=== PATIENT | female | born 1990 | race African-American/Black ===

== ENCOUNTER 2017-11-24 19:10 | Emergency (ER) | payer MEDICAID ==
[2017-11-24 19:59] LABS: Absolute Lymphocytes (CBC) 2.4 K/uL (0.7-4.9); Absolute Monocytes 0.8 K/uL (0.1-1.3); Absolute Neutrophil 7.8 K/uL (1.8-8.0); Basophils % 0.6 % (0-1.3); Eosinophils % 1.1 % (0-4.4); Hematocrit 35.2 % (36.0-45.0); Lymphocytes % 21.8 % (15.3-44.8); MCH 26.8 pg (27.0-35.0); MCV 79.7 fL (80-100); MPV 8.2 fL (7.6-11.3); RBC Red Blood Cell Count 4.41 M/uL (3.86-4.86)
[2017-11-24 20:06] LABS: BUN Blood Urea Nitrogen 5 mg/dL (6-20); Bicarbonate 23 mEq/L (21-31); Glomerular Filtration Rate > 90 mL/min (=/>90); Glucose Level 138 mg/dL (65-120); Potassium 3.3 mEq/L (3.6-5.0); Sodium Level 135 mEq/L (135-145)
[2017-11-24 20:53] LABS: Urine Blood 3+ (NEG); Urine Glucose NEGATIVE (NEG); Urine Protein 3+ (NEG); Urine Specific Gravity >1.030 (1.005-1.030)
--- NOTE | 2017-11-24 21:51 | RAD REPORT ---
EXAM DESCRIPTION: US - OB Limited - 11/24/2017 9:15 pm CLINICAL HISTORY: with vaginal bleeding and abdominal pain COMPARISON: None FINDINGS: A limited examination was performed to assess amniotic fluid, placenta and viability. Single live intrauterine is in cephalic presentation. The amniotic fluid is within normal l imits. The placenta is posterior. Partial placenta previa is seen. Cardiac activity 157 beats per minute. The cervix measures 4.2 centimeters BPD 3.7 centimeter 17 weeks 2 days HC 13.5 centimeters 17 weeks 0 days HC 11.8 centimeters 17 weeks 4 days FL 2.5 centimeter 17 weeks 4 days Estimated weight 197 grams IMPRESSION: Single live intrauterine in cephalic presentation. Estimated gestational age 17 weeks 3 days KARLO 05/23/2018 Partial placenta previa Normal amniotic fluid A follow-up ultrasound is recommended to reassess the placenta. If a survey is desired it shoul d be performed in approximately 7-10 days
--- NOTE | 2017-11-24 22:27 | ER ---
Nurse's Notes [facility] Name: Gabriella Howard Age: 26 yrs Sex: Female : 1990 Arrival Date: 11/24/2017 Time: 19:13 Bed 20 Private MD: Diagnosis: Partial Placenta Previa;Vaginal Bleeding Presentation: 11/24 19:18 Presenting complaint: Patient states: Patient states feeling light headed and then felt lp1 something "come out"; Bright red bleeding, vaginal; Seeing Dr. Rosales for OB; Feeling some pelvic pressure. Transition of care: patient was not received from another setting of care. Onset of symptoms was November 24, 2017 at 18:45. Care prior to arrival: None. 19:18 Method Of Arrival: Ambulatory lp1 19:18 Acuity: MERLIN 3 lp1 Triage Assessment: 19:25 General: Appears in no apparent distress. Behavior is calm, cooperative. rk2 19:25 Pain: Denies pain. Neuro: Level of Consciousness is alert, Oriented to person, place, rk2 time, situation. Respiratory: Airway is patent Respiratory effort is even, unlabored, Respiratory pattern is regular, symmetrical. : Reports vaginal bleeding that is. Derm: Skin is pink, warm \\T\\ dry. 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 - Social history:: Smoking status: Patient/guardian denies using tobacco. Screenin:23 Abuse screen: Denies threats or abuse. Denies injuries from another. Nutritional lp1 screening: No deficits noted. Tuberculosis screening: No symptoms or risk factors identified. Fall Risk None identified. Assessment: 20:00 Reassessment: Pt. resting in room with family \\T\\ bedside... pt. appears to be in no rk2 obvious distress. Pt. voiced no needs \\T\\ this time. 21:10 Reassessment: Pt. resting in room in no obvious distress... family \\T\\ bedside. Pt. rk2 voiced no needs \\T\\ this time. Vital Signs: 19:20 BP 106 / 62 RA Standing; Pulse 117; Resp 18; Temp 97.9(TE); Pulse Ox 98% on R/A; Weight lp1 97.52 kg; Height 5 ft. 1 in. (154.94 cm); Pain 0/10; 22:19 BP 115 / 62; Pulse 84; Resp 16; Pulse Ox 99% on R/A; rk2 19:20 Body Mass Index 40.62 (97.52 kg, 154.94 cm) lp1 ED Course: 19:13 Patient arrived in ED. do 19:20 Triage completed. lp1 19:20 Arm band placed on left wrist. lp1 19:25 Patient has correct armband on for positive identification. Bed in low position. Call rk2 light in reach. 19:31 [facility] jr8 19:31 Kevin Betancourt MD is Attending Physician. jr8 19:31 Carol Begum RN is Primary Nurse. rk2 19:50 Quantitative Hcg Sent. rk2 19:50 Abo/rh Typing Sent. rk2 20:33 Ultrasound completed. Patient tolerated well. 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 sg3 20:43 US OB Limited Sent. rk2 20:45 Basic Metabolic Panel Sent. rk2 20:45 CBC with Diff Sent. rk2 22:31 No provider procedures requiring assistance completed. IV discontinued. rk2 Administered Medications: No medications were administered Outcome: 22:27 Discharge ordered by . jr8 22:31 Discharged to home ambulatory. rk2 22:31 Condition: good 22:31 Discharge instructions given to patient. 22:42 Patient left the ED. rk2 Signatures: Karen Biswas, RN RN lp1 Winston Stone PA PA jr8 Meghana Davies Sarah sg3 Carol Begum RN RN rk2
--- NOTE | 2017-11-24 22:27 | EDPHYS ---
Physician Documentation [facility] Name: Gabriella Howard Age: 26 yrs Sex: Female : 1990 Arrival Date: 11/24/2017 Time: 19:13 Bed 20 Private MD: ED Physician Kevin Betancourt HPI: 11/24 20:24 This 26 yrs old Black Female presents to ER via Ambulatory with complaints of 4 Months jr8 with Vaginal Bleeding. 20:24 The patient presents with vaginal bleeding that is light. Onset: The symptoms/episode jr8 began/occurred acutely, today. Modifying factors: The symptoms are alleviated by nothing, the symptoms are aggravated by nothing. Associated signs and symptoms: Pertinent positives: cramping. Severity of symptoms: At their worst the symptoms were mild, in the emergency department the symptoms are unchanged. The patient has not experienced similar symptoms in the past. The patient has not recently seen a physician. Patient stated that she had hot flash yesterday and passed out. Stated that when she woke up her underwear was wet. Today she has had lower pelvic pressure and vaginal bleeding. 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 - Social history:: Smoking status: Patient/guardian denies using tobacco. ROS: 20:24 Eyes: Negative for injury, pain, redness, and discharge, ENT: Negative for injury, jr8 pain, and discharge, Neck: Negative for injury, pain, and swelling, Cardiovascular: Negative for chest pain, palpitations, and edema, Respiratory: Negative for shortness of breath, cough, wheezing, and pleuritic chest pain, Abdomen/GI: Negative for abdominal pain, nausea, vomiting, diarrhea, and constipation, Back: Negative for injury and pain, MS/Extremity: Negative for injury and deformity, Skin: Negative for injury, rash, and discoloration. 20:24 : Positive for vaginal bleeding. 20:24 Neuro: Positive for syncope, Negative for altered mental status, dizziness, gait disturbance, headache, hearing loss, numbness, seizure activity, speech changes, tingling, tinnitus, tremor, visual changes, weakness. Exam: 20:24 ENT: Nares patent. No nasal discharge, no septal abnormalities noted. Tympanic jr8 membranes are normal and external auditory canals are clear. Oropharynx with no redness, swelling, or masses, exudates, or evidence of obstruction, uvula midline. Mucous membranes moist. Neck: Trachea midline, no thyromegaly or masses palpated, and no cervical lymphadenopathy. Supple, full range of motion without nuchal rigidity, or vertebral point tenderness. No Meningismus. Cardiovascular: Regular rate and rhythm with a normal S1 and S2. No gallops, murmurs, or rubs. Normal PMI, no JVD. No pulse deficits. Respiratory: Lungs have equal breath sounds bilaterally, clear to auscultation and percussion. No rales, rhonchi or wheezes noted. No increased work of breathing, no retractions or nasal flaring. Abdomen/GI: Soft, non-tender, with normal bowel sounds. No distension or tympany. No guarding or rebound. No evidence of tenderness throughout. Back: No spinal tenderness. No costovertebral tenderness. Full range of motion. Skin: Warm, dry with normal turgor. Normal color with no rashes, no lesions, and no evidence of cellulitis. MS/ Extremity: Pulses equal, no cyanosis. Neurovascular intact. Full, normal range of motion. Neuro: Awake and alert, GCS 15, oriented to person, place, time, and situation. Cranial nerves II-XII grossly intact. Motor strength 5/5 in all extremities. Sensory grossly intact. Cerebellar exam normal. Normal gait. 22:07 : Pelvic Exam: External exam: is normal, Speculum exam: mild bleeding, no cervicitis, jr8 os that is closed, bimanual exam reveals no cervical motion tenderness, os that is closed, the nurse was present for the exam. Vital Signs: 19:20 BP 106 / 62 RA Standing; Pulse 117; Resp 18; Temp 97.9(TE); Pulse Ox 98% on R/A; Weight lp1 97.52 kg; Height 5 ft. 1 in. (154.94 cm); Pain 0/10; 22:19 BP 115 / 62; Pulse 84; Resp 16; Pulse Ox 99% on R/A; rk2 19:20 Body Mass Index 40.62 (97.52 kg, 154.94 cm) lp1 MDM: 19:31 Patient medically screened. [facility] 22:07 Data reviewed: vital signs, nurses notes, lab test result(s), radiologic studies, 8 ultrasound. 22:25 Data interpreted: Pulse oximetry: on room air is 99 %. Interpretation: normal. jr8 Counseling: I had a detailed discussion with the patient and/or guardian regarding: the historical points, exam findings, and any diagnostic results supporting the discharge/admit diagnosis, lab results, radiology results, the need for outpatient follow up, an OB/Gyne specialist, to return to the emergency department if symptoms worsen or persist or if there are any questions or concerns that arise at home. ED course: Dr. Simeon consulted on case. Recommended complete pelvic rest and no strenuous activity. Need to f/u with OB on Sunday. If worse to come back for further evaluation. 11/24 19:31 Order name: Quantitative Hcg [facility] 11/24 19:31 Order name: Abo/rh Typing [facility] 11/24 19:31 Order name: Basic Metabolic Panel [facility] 11/24 19:31 Order name: CBC with Diff [facility] 11/24 19:59 Order name: Urine Dipstick--Ancillary (enter results) [facility] 11/24 19:59 Order name: Urine --Ancillary (enter results) [facility] 11/24 20:00 Order name: US OB Limited 11/24 20:02 Order name: CBC with Automated Diff; Complete Time: 20:04 EDMS 11/24 20:06 Order name: Basic Metabolic Panel; Complete Time: 20:41 EDMS 11/24 20:38 Order name: HCG, Quantitative; Complete Time: 20:41 EDMS 11/24 20:41 Order name: ABO/RH typing; Complete Time: 20:41 EDMS 11/24 20:54 Order name: Urine --Ancillary; Complete Time: 20:55 EDMS 11/24 20:54 Order name: Urine Dipstick-Ancillary; Complete Time: 20:55 EDMS 11/24 21:51 Order name: US; Complete Time: 21:52 [facility] 11/24 19:31 Order name: Urine Test (obtain specimen); Complete Time: 19:57 jr8 11/24 19:31 Order name: IV Saline Lock; Complete Time: 19:48 jr8 11/24 19:31 Order name: Labs collected and sent; Complete Time: 19:48 jr8 11/24 19:31 Order name: NPO; Complete Time: 19:48 jr8 11/24 19:31 Order name: Urine Dipstick-Ancillary (obtain specimen); Complete Time: 19:57 jr8 Administered Medications: No medications were administered Disposition: 11/24/17 22:27 Discharged to Home. Impression: Partial Placenta Previa, Vaginal Bleeding . - Condition is Stable. - Discharge Instructions: Placenta Previa. - Medication Reconciliation Form, Thank You Letter, Antibiotic Education, Prescription Opioid Use form. - Follow up: Private Physician; When: 1 - 2 days; Reason: Recheck today's complaints, Continuance of care, Re-evaluation by your physician. - Problem is new. - Symptoms have improved. Addendum: 11/27/2017 07:00 Co-signature as Attending Physician, Kevin Betancourt MD I agree with the assessment and w a plan of care. Signatures: Dispatcher [employer] [facility] Karen Biswas, RN RN lp1 Winston Stone PA PA jr8 Kevin Betancourt MD MD wa Kidder, Rhonda RN RN rk2
[2017-11-24 22:47] VITALS: TEMP 97.9
[2017-11-24 22:54] VITALS: BP 115/62; O2SAT 99
== END 2017-11-24 22:42 | disposition home or self-care (01) ==
LOC: ER 19:10
DX: O44.32 Partial placenta previa with hemorrhage, second trimester (principal); Z3A.17 17 weeks gestation of pregnancy
CPT/HCPCS: 36415; 76815; 80048; 81003; 81025; 84702; 85025; 86900; 86901; 99283

== ENCOUNTER 2022-03-03 19:27 | Emergency (ER) | payer OTHER ==
[2022-03-03] MEDS ORDERED: ACETAMINOPHEN 325 MG TABLET ONE (20:59)
--- NOTE | 2022-03-03 22:57 | ER ---
Nurse's Notes [facility] Name: Gabriella Howard Age: 31 yrs Sex: Female : 1990 Arrival Date: 03/03/2022 Time: 19:28 Bed 12 Private MD: Diagnosis: 26 weeks gestation of ;Coronavirus infection, unspecified;SARS-associated coronavirus as the cause of diseases classified elsewhere;Cough;Acute upper respiratory infection, unspecified Presentation: 03/03 20:28 Chief complaint: Patient states: "I have a cough that started Sunday, I can't get rid vc1 of but I am also having really bad lower stomach and back pains that started .". Coronavirus screen: Vaccine status: Patient reports being unvaccinated. cough unrelated to allergies, fatigue, muscle pain, nausea, sore throat, Client presents with at least one sign or symptom that may indicate coronavirus-19. Standard/surgical mask placed on the client. Provider contacted for isolation considerations. Ebola Screen: No symptoms or risks identified at this time. Initial Sepsis Screen: Does the patient meet any 2 criteria? HR > 90 bpm. No. Patient's initial sepsis screen is negative. Does the patient have a suspected source of infection? Yes: Productive cough/pneumonia. Risk Assessment: Do you want to hurt yourself or someone else? Patient reports no desire to harm self or others. Onset of symptoms was February 28, 2022. 20:28 Method Of Arrival: Ambulatory vc1 20:28 Acuity: MERLIN 3 vc1 Triage Assessment: 22:00 General: Appears in no apparent distress. uncomfortable, ill, Behavior is calm, vc1 cooperative, appropriate for age. Pain: Complains of pain in back and abdomen Pain does not radiate. Pain currently is 7 out of 10 on a pain scale. 22:00 EENT: No deficits noted. Neuro: Level of Consciousness is awake, alert, obeys commands, vc1 Oriented to person, place, time, situation, Appropriate for age. Cardiovascular: Capillary refill < 3 seconds Patient's skin is warm and dry. Respiratory: Reports cough that is Airway is patent Respiratory effort is even, unlabored, Respiratory pattern is regular, symmetrical, Denies shortness of breath. GI: Reports upper abdominal pain, nausea. : No deficits noted. Derm: No deficits noted. Musculoskeletal: No deficits noted. 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 - Social history:: Smoking status: Patient denies any tobacco usage or history of. Screenin:15 Abuse screen: Denies threats or abuse. Nutritional screening: No deficits noted. vc1 Tuberculosis screening: No symptoms or risk factors identified. Fall Risk None identified. Assessment: 22:00 GI: Bowel sounds Abd is soft and non tender. vc1 Vital Signs: 20:28 BP 124 / 84; Pulse 90; Resp 17; Temp 97.4; Pulse Ox 100% on R/A; Weight 88.45 kg; vc1 Height 5 ft. 1 in. (154.94 cm); Pain 6/10; 20:28 Body Mass Index 36.84 (88.45 kg, 154.94 cm) vc1 ED Course: 19:28 Patient arrived in ED. am2 20:31 Triage completed. vc1 20:31 Arm band placed on left wrist. vc1 22:00 Daren Fine MD is Attending Physician. [facility] 22:17 Notified ED physician of a critical lab result(s). COVID Positive. lp1 23:02 Terrie Hartman RN is Primary Nurse. vc1 23:16 No provider procedures requiring assistance completed. Patient did not have IV access vc1 during this emergency room visit. 23:17 Patient has correct armband on for positive identification. vc1 Administered Medications: 20:53 Drug: Tylenol 650 mg Route: PO; vc1 22:00 Follow up: Response: No adverse reaction; Marked relief of symptoms; Pain is decreased vc1 23:02 Drug: Zithromax (azithromycin) 500 mg Route: PO; vc1 23:03 Follow up: Response: No adverse reaction; Medication administered at discharge. vc1 23:02 Drug: Benadryl (diphenhydrAMINE) 50 mg Route: PO; vc1 23:02 Follow up: Response: Medication administered at discharge. vc1 23:02 Follow up: Response: Medication administered at discharge. vc1 23:03 Follow up: Response: Marked relief of symptoms; Medication administered at discharge. vc1 Medication: 23:17 VIS not applicable for this client. vc1 Outcome: 22:57 Discharge ordered by . ludy 23:17 Discharged to home ambulatory. vc1 23:17 Condition: good 23:17 Discharge instructions given to patient, Instructed on discharge instructions, follow up and referral plans. medication usage, Demonstrated understanding of instructions, follow-up care, medications, Prescriptions given X 2. 23:17 Patient left the ED. vc1 Signatures: Daren Fine MD MD cha Pena, Laura, RN RN lp1 Amanda Tirado am2 Terrie Hartman RN RN vc1
--- NOTE | 2022-03-03 22:57 | EDPHYS ---
Physician Documentation [facility] Name: Gabriella Howard Age: 31 yrs Sex: Female : 1990 Arrival Date: 03/03/2022 Time: 19:28 Bed 12 Private MD: ARLEN Physician Daren Fine HPI: 03/03 22:53 This 31 yrs old Black Female presents to ER via Ambulatory with complaints of Abdominal ludy Pain - low, Low Back Pain, Cough. 22:53 This 31 yrs old Black Female presents to ER via Ambulatory with complaints of Abdominal ludy Pain - low, Low Back Pain, Cough. 22:53 The patient presents with pain that is acute. 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 - Social history:: Smoking status: Patient denies any tobacco usage or history of. ROS: 22:53 Constitutional: Negative for fever, chills, and weight loss, Eyes: Negative for injury, ludy pain, redness, and discharge, ENT: Negative for injury, pain, and discharge, Neck: Negative for injury, pain, and swelling, Cardiovascular: Negative for chest pain, palpitations, and edema, Abdomen/GI: Negative for abdominal pain, nausea, vomiting, diarrhea, and constipation, : Negative for injury, bleeding, discharge, and swelling, MS/Extremity: Negative for injury and deformity, Skin: Negative for injury, rash, and discoloration, Neuro: Negative for headache, weakness, numbness, tingling, and seizure, Psych: Negative for depression, anxiety, suicide ideation, homicidal ideation, and hallucinations, Allergy/Immunology: Negative for hives, rash, and allergies, Endocrine: Negative for neck swelling, polydipsia, polyuria, polyphagia, and marked weight changes, Hematologic/Lymphatic: Negative for swollen nodes, abnormal bleeding, and unusual bruising. 22:53 Respiratory: Positive for cough, with green sputum. 22:53 Abdomen/GI: Positive for abdominal distension. Exam: 22:53 Constitutional: This is a well developed, well nourished patient who is awake, alert, ludy and in no acute distress. Head/Face: Normocephalic, atraumatic. Eyes: Pupils equal round and reactive to light, extra-ocular motions intact. Lids and lashes normal. Conjunctiva and sclera are non-icteric and not injected. Cornea within normal limits. Periorbital areas with no swelling, redness, or edema. ENT: Nares patent. No nasal discharge, no septal abnormalities noted. Tympanic membranes are normal and external auditory canals are clear. Oropharynx with no redness, swelling, or masses, exudates, or evidence of obstruction, uvula midline. Mucous membranes moist. Neck: Trachea midline, no thyromegaly or masses palpated, and no cervical lymphadenopathy. Supple, full range of motion without nuchal rigidity, or vertebral point tenderness. No Meningismus. Chest/axilla: Normal chest wall appearance and motion. Nontender with no deformity. No lesions are appreciated. Cardiovascular: Regular rate and rhythm with a normal S1 and S2. No gallops, murmurs, or rubs. Normal PMI, no JVD. No pulse deficits. Back: No spinal tenderness. No costovertebral tenderness. Full range of motion. Skin: Warm, dry with normal turgor. Normal color with no rashes, no lesions, and no evidence of cellulitis. MS/ Extremity: Pulses equal, no cyanosis. Neurovascular intact. Full, normal range of motion. Neuro: Awake and alert, GCS 15, oriented to person, place, time, and situation. Cranial nerves II-XII grossly intact. Motor strength 5/5 in all extremities. Sensory grossly intact. Cerebellar exam normal. Normal gait. Psych: Awake, alert, with orientation to person, place and time. Behavior, mood, and affect are within normal limits. 22:53 Respiratory: the patient does not display signs of respiratory distress, Respirations: normal, Breath sounds: are clear throughout, no bronchial sounds, no decreased breath sounds, no rales, rhonchi, no stridor, no wheezing, Respiratory rate: 17 Vital Signs: 20:28 BP 124 / 84; Pulse 90; Resp 17; Temp 97.4; Pulse Ox 100% on R/A; Weight 88.45 kg; vc1 Height 5 ft. 1 in. (154.94 cm); Pain 6/10; 20:28 Body Mass Index 36.84 (88.45 kg, 154.94 cm) 1 MDM: 22:00 Patient medically screened. [facility] 22:54 Data reviewed: vital signs, nurses notes, lab test result(s), Flu: negative. [facility] 03/03 20:41 Order name: Strep [facility] 03/03 20:41 Order name: Flu [facility] 03/03 20:41 Order name: COVID-19 SARS RT PCR (Document "Date of Onset" if Symptomatic) 1 03/03 22:40 Order name: Throat Culture EDMS Administered Medications: 20:53 Drug: Tylenol 650 mg Route: PO; 1 22:00 Follow up: Response: No adverse reaction; Marked relief of symptoms; Pain is decreased vc1 23:02 Drug: Zithromax (azithromycin) 500 mg Route: PO; vc1 23:03 Follow up: Response: No adverse reaction; Medication administered at discharge. vc1 23:02 Drug: Benadryl (diphenhydrAMINE) 50 mg Route: PO; vc1 23:02 Follow up: Response: Medication administered at discharge. vc1 23:02 Follow up: Response: Medication administered at discharge. vc1 23:03 Follow up: Response: Marked relief of symptoms; Medication administered at discharge. vc1 Disposition Summary: 03/03/22 22:57 Discharge Ordered Location: Home ludy Problem: new ludy Symptoms: have improved ludy Condition: Stable ludy Diagnosis - 26 weeks gestation of ludy - Coronavirus infection, unspecified ludy - SARS-associated coronavirus as the cause of diseases classified elsewhere ludy - Cough ludy - Acute upper respiratory infection, unspecified ludy Followup: ludy - With: Private Physician - When: 2 - 3 days - Reason: Recheck today's complaints, Continuance of care, Re-evaluation by your physician Discharge Instructions: - Discharge Summary Sheet ludy - Upper Respiratory Infection, Adult ludy - Cool Mist Vaporizer ludy - Upper Respiratory Infection, Adult, [id number] ludy - Viral Respiratory Infection, [id number] ludy - Cough, Adult ludy - COVID-19 ludy - COVID-19 Frequently Asked Questions ludy - Things to Know about the COVID-19 Pandemic - [facility] ludy - 10 Things You Can Do to Manage Your COVID-19 Symptoms at Home - [facility] ludy - Viral Illness, Adult ludy - COVID-19: Quarantine vs. Isolation - [facility] - Prevent the Spread of COVID-19 if You Are Sick - [facility] Forms: - Medication Reconciliation Form ludy - Thank You Letter ludy - Antibiotic Education ludy - Prescription Opioid Use ludy - Work release form vc1 Prescriptions: - Benadryl 25 mg Oral Capsule - take 1 capsule by ORAL route every 6 hours As needed; 30 tablet; Refills: 0, ludy Product Selection Permitted - Zithromax Z-Scout 250 mg Oral Tablet - take 1 tablet by ORAL route as directed for 5 days Day 1 - take two (2) tablets ludy one time. Day 2, 3, 4 , 5 take one (1) tablet once daily.; 6 tablet; Refills: 0, Product Selection Permitted Signatures: Dispatcher [employer] Daren Badillo MD MD cha Calcote, Vanessa, RN RN vc1
[2022-03-03] MEDS ORDERED: DIPHENHYDRAMINE 25 MG TAB/CAP ONE (23:06)
[2022-03-03] MEDS ORDERED: AZITHROMYCIN 250 MG TAB ONE (23:06)
[2022-03-03 23:58] VITALS: BP 124/84; TEMP 97.4; O2SAT 100
== END 2022-03-03 23:17 | disposition home or self-care (01) ==
LOC: ER 19:27
DX: O98.512 Other viral diseases complicating pregnancy, second trimester (principal); O99.512 Diseases of the respiratory system complicating pregnancy, second trimester; U07.1 COVID-19; Z3A.26 26 weeks gestation of pregnancy
CPT/HCPCS: 87070; 87081; 87804 ×2; 99283; U0003

== ENCOUNTER 2024-02-22 11:51 | Emergency (ER) | payer SELFPAY ==
[2024-02-22 13:38] LABS: Specific Gravity 1.026 (1.005-1.030)
[2024-02-22 13:47] LABS: Specific Gravity 1.026 (1.005-1.030); Urine Bacteria None Seen /HPF (<20); Urine Bilirubin NEGATIVE (Negative); Urine Blood 3+ (OVER) (Negative); Urine Clarity Extremely Turbid (Clear); Urine Color Light-Orange (Yellow); Urine Culture Reflex Order REFLEXED; Urine Glucose NEGATIVE (Negative); Urine Ketones NEGATIVE (Negative); Urine Micro Reflex YN NO BILL MICROSCOPIC; Urine Mucus Slight /HPF (None Seen); Urine Nitrite NEGATIVE (Negative); Urine Protein 1+ (Negative); Urine RBC >50 /HPF (None Seen); Urine Urobilinogen Normal (Normal); Urine WBC >50 /HPF (<5)
--- NOTE | 2024-02-22 13:50 | EDPHYS ---
Physician Documentation [facility] Name: Gabriella Howard Age: 33 yrs Sex: Female : 1990 Arrival Date: 02/22/2024 Time: 11:51 Bed DX4 Private MD: ED Physician Chuck Ayoub HPI: 02/21 12:32 This 33 yrs old Black Female presents to ER via Ambulatory with complaints of Urinary ec2 Problem. 12:32 Patient arrives today for evaluation of 4 days of urinary symptoms. Reportedly does ec2 have any dysuria as well as increased urinary frequency. History of UTI. States this feels similar. Patient reports no nausea or vomiting, denies fevers.. 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 - Infectious Disease History:: Denies. - Social history:: Smoking status: Patient denies any tobacco usage or history of. ROS: 12:32 Constitutional: as per hpi ec2 Exam: 12:32 Constitutional: GEN: NAD Head: atraumatic Eyes: EOMI Ears: External ears are ec2 normal. CV: regular rate LUNGS: no respiratory distress ABD: non-distended, soft, nontender, no guarding, nonrigid. No CVA TTP SKIN: no evidence of rashes MSK: no evidence of trauma NEURO: moves all extremities equally Vital Signs: 12:29 BP 142 / 92; Pulse 80; Resp 17; Temp 98.2; Pulse Ox 99% ; Weight 95.25 kg; Height 5 ft. ap3 0 in. ; Pain 4/10; 12:29 Body Mass Index 41.01 (95.25 kg, 152.4 cm) ap3 12:29 Pain Scale: Adult ap3 MDM: 11:59 Patient medically screened. ec2 12:32 Data reviewed: vital signs. ED course: Patient arrives today for evaluation of urinary ec2 complaints. Examination remarkable for well-appearing nontoxic returns otherwise in no acute distress with no CVA TTP. Will obtain urine studies and urine pride. Differential diagnosis include dysuria, urinary tract infection. 13:49 ED course: Urine infection of the period. Will discharge home, started antibiotics. ec2 Return precautions given.. 02/21 12:31 Order name: UAM; Complete Time: 13:49 ec2 02/21 12:31 Order name: Test, Urine; Complete Time: 13:42 ec2 02/21 13:50 Order name: Urine Culture EDMS Administered Medications: 14:03 Drug: Nitrofurantoin PO 100 mg PO once; administer with food Route: PO; ap3 14:04 Follow up: Response: Medication administered at discharge. ap3 Disposition Summary: 02/22/24 13:50 Discharge Ordered Notes: Location: Home ec2 Condition: Stable ec2 Diagnosis - Dysuria ec2 - UTI/ Urinary tract infection, site not specified ec2 Followup: ec2 - With: Private Physician - When: - Reason: Re-evaluation by your physician Discharge Instructions: - Discharge Summary Sheet ec2 - Urinary Tract Infection, Adult, [id number] ec2 Forms: - Medication Reconciliation Form ec2 - Antibiotic Education ec2 - Prescription Opioid Use ec2 - Patient Portal Instructions ec2 - Leadership Thank You Letter ec2 Prescriptions: - Macrobid 100 mg Oral Capsule - take 1 capsule ORAL route every 12 hours for 7 days; 14 capsule; Refills: 0, ec2 Product Selection Permitted Signatures: Dispatcher [employer] Amanda Hays RN RN ap3 Chuck Ayoub MD MD ec2 Corrections: (The following items were deleted from the chart) 12:32 12:32 Urinalysis W/Microscopic+U.LAB.BRZ ordered. EDMS EDMS 12:32 12:32 Test, Urine+UC.LAB.BRZ ordered. EDMS EDMS
--- NOTE | 2024-02-22 13:50 | ER ---
Nurse's Notes [facility] Name: Gabriella Howard Age: 33 yrs Sex: Female : 1990 Arrival Date: 02/22/2024 Time: 11:51 Bed DX4 Private MD: Diagnosis: Dysuria;UTI/ Urinary tract infection, site not specified Presentation: 02/21 12:29 Chief complaint: Patient states: she started having frequency and urgency with ap3 urination on Sunday02/18/24. patient also complains of low back pain that she rates as a 4/10 on the pain scale at this time. Coronavirus screen: At this time, the client does not indicate any symptoms associated with coronavirus-19. Ebola Screen: No symptoms or risks identified at this time. Initial Sepsis Screen: Does the patient meet any 2 criteria? No. Patient's initial sepsis screen is negative. Does the patient have a suspected source of infection? No. Patient's initial sepsis screen is negative. Risk Assessment: Do you want to hurt yourself or someone else? Patient reports no desire to harm self or others. Onset of symptoms was February 18, 2024. 12:29 Method Of Arrival: Ambulatory ap3 12:29 Acuity: MERLIN 4 ap3 Triage Assessment: 12:30 General: Appears in no apparent distress. Behavior is calm, cooperative, appropriate ap3 for age. Pain: Complains of pain in low back area Pain currently is 4 out of 10 on a pain scale. Pain began 2-3 days ago. Neuro: Level of Consciousness is awake, alert, obeys commands, Oriented to person, place, time, situation. Cardiovascular: Patient's skin is warm and dry. Respiratory: Airway is patent Respiratory effort is even, unlabored, Respiratory pattern is regular, symmetrical. : Reports burning with urination, urgency, urinary frequency. 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 - Infectious Disease History:: Denies. - Social history:: Smoking status: Patient denies any tobacco usage or history of. Screenin:[address] [facility] ED Fall Risk Assessment (Adult) History of falling in the last 3 months, ap3 including since admission No falls in past 3 months (0 pts) Confusion or Disorientation No (0 pts) Intoxicated or Sedated No (0 pts) Impaired Gait No (0 pts) Mobility Assist Device Used No (0 pt) Altered Elimination No (0 pt) Score/Fall Risk Level 0 - 2 = Low Risk Oriented to surroundings, Maintained a safe environment, Educated pt \T\ family on fall prevention, incl call for assistance when getting out of bed, Assessed \T\ reinforced patient's understanding of fall precautions, Provided non-skid footwear, Hourly rounding (assess needs \T\ fall precautionary measures) done, Used ambulatory aids as needed (educated on \T\ assisted with), Used gait belt as appropriate. Abuse screen: Denies threats or abuse. Nutritional screening: No deficits noted. Tuberculosis screening: No symptoms or risk factors identified. Vital Signs: 12:29 BP 142 / 92; Pulse 80; Resp 17; Temp 98.2; Pulse Ox 99% ; Weight 95.25 kg; Height 5 ft. ap3 0 in. ; Pain 4/10; 12:29 Body Mass Index 41.01 (95.25 kg, 152.4 cm) ap3 12:29 Pain Scale: Adult ap3 ED Course: 11:55 Patient arrived in ED. mg5 11:57 Chuck Ayoub MD is Attending Physician. ec2 12:30 Triage completed. ap3 12:31 Arm band placed on right wrist. ap3 12:32 Patient has correct armband on for positive identification. Adult w/ patient. Provided ap3 Education on: proper urine collection. 14:03 No provider procedures requiring assistance completed. Patient did not have IV access ap3 during this emergency room visit. Administered Medications: 14:03 Drug: Nitrofurantoin PO 100 mg PO once; administer with food Route: PO; ap3 14:04 Follow up: Response: Medication administered at discharge. ap3 Medication: 12:32 VIS not applicable for this client. ap3 Outcome: 13:50 Discharge ordered by . ec2 14:03 Discharged to home ambulatory, ap3 14:03 Condition: good 14:03 Discharge instructions given to patient, Instructed on discharge instructions, follow up and referral plans. medication usage, Demonstrated understanding of instructions, follow-up care, medications, Prescriptions given X 1, 14:04 Patient left the ED. ap3 Signatures: Amanda Méndez RN RN ap3 Sarah Beebe mg5 Chuck Ayoub MD MD ec2
[2024-02-22] MEDS ORDERED: NITROFURAN MACRO 100 MG CAP PO ONE (13:56)
[2024-02-22 14:26] VITALS: BP 142/92; TEMP 98.2; O2SAT 99
== END 2024-02-22 14:04 | disposition home or self-care (01) ==
LOC: ER 11:51
DX: N39.0 Urinary tract infection, site not specified (principal)
CPT/HCPCS: 81001; 81025; 87077; 87086; 87088; 87186; 99283